=== PATIENT | male | born 1980 | race Caucasian/White ===

== ENCOUNTER 2024-03-16 07:21 | Emergency (ER) | payer OTHER, SELFPAY ==
[2024-03-16 07:25] VITALS: BP 176/103; PULSE 80; RESP 18; TEMP 36.5; O2SAT 100
[2024-03-16 08:10] VITALS: BP 133/62; PULSE 65; RESP 18; O2SAT 100
--- NOTE | 2024-03-16 08:27 | ED.EXTPRO ---
HPI - Extremity Problem General Chief complaint: Extremity Problem,Nontraumatic Stated complaint: L hip pain Time Seen by Provider: 03/16/24 07:43 History of Present Illness HPI Narrative: 44-year-old female presenting to the emergency department for evaluation of left hip pain that is consistent with sciatica. Patient has had issues with sciatica pain previously. Patient states he is having some back pain yesterday and was manipulated by a chiropractor and states that the pain worsened. Patient also reports having longstanding issues with his left hip. Related Data Allergies Allergy/AdvReac Type Severity Reaction Status Date / Time No Known Allergies Allergy Verified 05/03/22 11:17 Review of Systems Review of Systems: All systems reviewed & are unremarkable except as noted in HPI and below PMFSH Social History Social History Smoking status: Never smoker Alcohol intake: current Alcohol use details: occasionally Substance use: never Substance use type: does not use Exam Narrative: APPEARANCE: Well appearing, no pain, no distress, well-nourished. HEAD: normocephalic, atraumatic. EYES: PERRLA/EOMI, conjunctivae clear. NOSE: Normal no drainage EARS:TMS clear with good light reflex. THROAT: Pharynx clear, no exudate. NECK: Supple. No adenopathy, no masses. RESPIRATORY: Airway patent, respirations nonlabored. Clear to auscultation bilaterally, no rales, rhonchi, wheezing. CARDIOVASCULAR: Regular rate and rhythm without murmurs rubs or gallops. ABDOMINAL: Soft, nontender, nondistended, normal bowel sounds MUSCULOSKELETAL: Left buttock tenderness to palpation NEURO: Alert. Cranial nerves II through XII intact. Grossly intact SKIN: Warm, dry. Normal Color Course Course Emergency Course: Patient was treated for sciatica and discharged home Vital Signs Vital signs: Vital Signs Temperature 97.7 F 03/16/24 07:25 Pulse Rate 80 03/16/24 07:25 Respiratory Rate 18 03/16/24 07:25 Blood Pressure 176/103 H 03/16/24 07:25 Pulse Oximetry 100 03/16/24 07:25 Oxygen Delivery Room Air 03/16/24 07:25 Temperature 97.7 F 03/16/24 07:25 Pulse Rate 65 06/28/24 08:10 Respiratory Rate 18 03/16/24 08:10 Blood Pressure 133/62 03/16/24 08:10 Pulse Oximetry 100 03/16/24 08:10 Oxygen Delivery Room Air 03/16/24 07:25 MDM - Extremity (Nontraumatic) MDM Narrative Medical decision making narrative: 44-year-old male presents emergency department for evaluation of left hip pain that is consistent with sciatica. Patient was started on Medrol Dosepak, hydrocodone and cyclobenzaprine. Patient was encouraged of close follow-up with his primary care physician and patient was advised that he may require some physical therapy. Patient was also updated on reasons to return to the emergency department. All questions concerns were addressed. Differential Diagnosis Differential diagnosis: Likely gout and other Discharge Plan Discharge Clinical Impression: Left hip pain, Sciatica Patient Disposition: Home, Self-Care Condition: Stable Instructions: Antibiotic Form, Sciatica (ED) Additional Instructions: Medrol Dosepak as directed. Flexeril for muscle spasm. Ibuprofen for pain control [place] as needed for additional pain control. Have close follow-up with a primary care physician. If you have any worsening symptoms then please call or return to the emergency department. Prescriptions: New hydrocodone-acetaminophen 5-325 mg tablet 1 tablet PO Q8H PRN (Reason: pain) Qty: 14 0RF methylprednisolone [Medrol ([place]add)] 4 mg tablets,dose pack See Rx Instructions .ROUTE .COMPLEX Qty: 21 0RF Rx Instructions: for 6 days cyclobenzaprine 10 mg tablet 10 mg PO BID PRN (Reason: muscle spasm) Qty: 14 0RF Follow-up/Referrals: PHYSICIAN,CHEMISTRY QUALITY CONTROL TECHNICIAN [Primary Care Provider] -
[2024-03-16] MEDS: CYCLOBENZAPRINE HCL 10 MG TABLET PO (08:41)
[2024-03-16] MEDS: KETOROLAC 30 MG/ML VIAL (*BKC) IM (08:42)
[2024-03-16] MEDS: HYDROcodone/acetaminophen (*CRX) 5-325 MG TABLET 1 TAB PO (08:42)
== END 2024-03-16 08:51 | disposition home or self-care (01) ==
PROVIDERS: Emergency Provider Emergency Medicine
DX: M54.42 Lumbago with sciatica, left side (principal)
CPT/HCPCS: 96372; 99283; A9270; J1885